=== PATIENT | female | born 1975 | race Caucasian/White ===

== ENCOUNTER 2022-05-31 07:12 | Emergency (ER) | payer OTHER ==
[2022-05-31 07:20] VITALS: BP 112/55; PULSE 63; RESP 20; TEMP 98.2; BMI 20.3
[2022-05-31] MEDS ORDERED: FAMOTIDINE 20 MG/50 ML IVPB 20 MG/50 ML MG IVPB ONE ×2 (07:26→08:02)
[2022-05-31] MEDS ORDERED: ONDANSETRON 4 MG/2 ML VIAL IVPUSH ONE (07:26)
[2022-05-31] MEDS ORDERED: SODIUM CHLORIDE 0.9% 1000 ML INFUS.BAG IV ONE (07:26)
[2022-05-31] MEDS ORDERED: ONDANSETRON 4 MG/2 ML VIAL ONE (07:50)
[2022-05-31 08:11] LABS: HCG,QUALITATIVE URINE Negative
[2022-05-31 08:31] LABS: HEMOGLOBIN 12.9 G/dL (10.7-15.3); MCH 31.6 pg (25.7-33.7); MEAN CELL VOLUME 92.9 fl (80-96); MEAN PLT VOLUME 10.8 fl (7.5-11.1); PLATELET COUNT 170.2 10^3/uL (134-434); RBC 4.09 10^6/uL (3.60-5.2); RDW 14.2 % (11.6-15.6); WHITE BLOOD COUNT 12.1 10^3/uL (4.0-10.8)
[2022-05-31 08:33] LABS: ALBUMIN 4.2 g/dl (3.4-5.0); BILIRUBIN,TOTAL 0.5 mg/dl (0.2-1); CREATININE 0.9 mg/dl (0.55-1.3); TOT PROT 7.2 g/dl (6.4-8.2)
[2022-05-31 09:09] LABS: PLATELET ESTIMATE ADEQUATE
[2022-05-31 09:10] LABS: EPITHELIAL CELLS MODERATE /hpf
== END 2022-05-31 09:45 | disposition home or self-care (01) ==
LOC: FER 07:12
PROC: 3E033GC Introduction of Other Therapeutic Substance into Peripheral Vein, Percutaneous Approach (ICD-10-PCS; principal; 2022-05-31)
DX: R11.2 Nausea with vomiting, unspecified (principal); R07.0 Pain in throat; R68.83 Chills (without fever); R10.9 Unspecified abdominal pain
CPT/HCPCS: 36415; 80053; 81003; 81015; 84703; 85027; 99284-25

== ENCOUNTER 2023-01-02 21:58 | Emergency (ER) | payer OTHER ==
[2023-01-02 22:06] VITALS: BP 104/60; PULSE 78; RESP 18; TEMP 98; BMI 21.2
[2023-01-02] MEDS ORDERED: SODIUM CHLORIDE 1,000 ML IV ONE (22:12)
[2023-01-02] MEDS ORDERED: ONDANSETRON 4 MG/2 ML VIAL IVPUSH ONE ×2 (22:12→23:24)
[2023-01-02 22:56] LABS: HEMATOCRIT 38.3 % (32.4-45.2); HEMOGLOBIN 12.9 G/dL (10.7-15.3); MCH 31.8 pg (25.7-33.7); MCHC 33.6 g/dl (32.0-36.0); MEAN CELL VOLUME 94.8 fl (80-96); MEAN PLT VOLUME 10.7 fl (7.5-11.1); PLATELET COUNT 182.3 10^3/uL (134-434); RBC 4.04 10^6/uL (3.60-5.2); RDW 13.8 % (11.6-15.6); WHITE BLOOD COUNT 11.9 10^3/uL (4.0-10.8)
[2023-01-02 23:06] LABS: ALBUMIN 4.3 g/dl (3.4-5.0); BILIRUBIN,TOTAL 0.4 mg/dl (0.2-1); CALCIUM 9.2 mg/dl (8.5-10.1); POTASSIUM 3.8 mmol/L (3.5-5.1); TOT PROT 6.5 g/dl (6.4-8.2)
[2023-01-02] MEDS ORDERED: ONDANSETRON 4 MG/2 ML VIAL ONE (23:22)
[2023-01-02] MEDS ORDERED: HYOSCYAMINE SULFATE 0.125 MG *ODT PO ONE (23:36)
[2023-01-03] MEDS ORDERED: ACETAMINOPHEN 1000 MG/100 ML BAG IVPB ONE (00:39)
[2023-01-03] MEDS ORDERED: ACETAMINOPHEN INJECTION 100 ML IVPB ONE (00:40)
[2023-01-03] MEDS ORDERED: MAGNESIUM CITRATE 300 ML BOTTLE ONE (02:05)
[2023-01-03] MEDS ORDERED: MAGNESIUM CITRATE 300 ML BOTTLE PO ONE (02:07)
== END 2023-01-03 02:18 | disposition home or self-care (01) ==
LOC: FER 21:58
PROC: 3E033GC Introduction of Other Therapeutic Substance into Peripheral Vein, Percutaneous Approach (ICD-10-PCS; 2023-01-02)
PROC: 3E0337Z Introduction of Electrolytic and Water Balance Substance into Peripheral Vein, Percutaneous Approach (ICD-10-PCS; 2023-01-02)
PROC: 3E033NZ Introduction of Analgesics, Hypnotics, Sedatives into Peripheral Vein, Percutaneous Approach (ICD-10-PCS; principal; 2023-01-03)
DX: R10.33 Periumbilical pain (principal); K59.00 Constipation, unspecified; R11.0 Nausea; Z20.822 Contact with and (suspected) exposure to COVID-19
CPT/HCPCS: 36415; 74019-TC-FY; 74177-TC; 80053; 81003; 81025; 82550; 83690; 84484; 85027; 87635; 93005; 99285-25; Q9967

== ENCOUNTER 2023-06-15 04:41 | Day surgery (SDC) | payer OTHER ==
[2023-06-12 11:50] VITALS: BMI 19.7
[2023-06-15 10:18] VITALS: TEMP 98
[2023-06-15 10:56] VITALS: PULSE 62
[2023-06-15 10:58] VITALS: BP 111/64; RESP 16
== END 2023-06-15 11:05 | disposition home or self-care (01) ==
LOC: JASU-ENDO 04:41
PROVIDERS: ATTEND Internal Medicine Gastroenterology
PROC: 0DBP8ZX Excision of Rectum, Via Natural or Artificial Opening Endoscopic, Diagnostic (ICD-10-PCS; principal; 2023-06-15 10:00)
DX: Z12.11 Encounter for screening for malignant neoplasm of colon (principal); K63.89 Other specified diseases of intestine; D12.8 Benign neoplasm of rectum; K64.8 Other hemorrhoids
CPT/HCPCS: 81025; 88305-TC